=== PATIENT | female | born 1935 | race Caucasian/White ===

== ENCOUNTER 2016-08-08 09:43 | Day surgery (SDC) | payer MEDICARE, OTHER ==
--- NOTE | ~2016-08-08 | EGD ---
EGD REPORT [facility] [address] [address] NAME: ANNA CAMARENA : [birth year] STATUS : REG [facility]#: [id number] AGE: 80 ADM/REG DATE : 08/08/16 MR#: [id number] REPORT SERV DATE: 08/08/16 DICTATED BY: SHIRAZ ELLIS DATE: 08/08/16 REPORT STATUS : Draft TRANSCRIBED BY: [facility] DATE: 08/08/16 [facility] Center Patient Name: Anna Camarena Date of : 1935 Attending MD: SHIRAZ ELLIS MD Procedure Date No Time: 08/08/2016 Procedure: Upper GI endoscopy Indications: Dysphagia, Heartburn, Suspected esophageal reflux Referring MD: VERÓNICA GOETZ Medicines: as per anesthesia Complications: No immediate complications. Procedure: Pre-Anesthesia Assessment: - ASA Grade Assessment: III - A patient with severe systemic disease. After obtaining informed consent, the endoscope was passed under direct vision. Throughout the procedure, the patient's blood pressure, pulse, and oxygen saturations were monitored continuously. The GIF [id number] was introduced through the mouth, and advanced to the third part of duodenum. The upper GI endoscopy was accomplished without difficulty. The patient tolerated the procedure. Findings: A mild Schatzki ring (acquired) was found in the lower third of the esophagus. The scope was withdrawn. Dilation was performed with a Stoddard dilator with no resistance at 44 Fr. A small hiatus hernia was present. Localized mild inflammation characterized by erythema was found in the gastric antrum. Biopsies were taken with a cold forceps for histology. The examined duodenum was normal. Impression: - Mild Schatzki ring. Dilated. - Hiatus hernia. - Gastritis. Biopsied. - Normal examined duodenum. Recommendation: - Await pathology results. - Follow an antireflux regimen. - Continue present medications. Procedure Code(s): --- Professional --- 28869, Esophagogastroduodenoscopy, flexible, transoral; with biopsy, single or multiple 44778, Dilation of esophagus, by unguided sound or EGD REPORT [facility] [address] [place] [address] [place]. [address] NAME: ANNA CAMARENA : [birth year] STATUS : REG [facility]#: [id number] AGE: 80 ADM/REG DATE : 08/08/16 MR#: [id number] REPORT SERV DATE: 08/08/16 DICTATED BY: SHIRAZ ELLIS. DATE: 08/08/16 REPORT STATUS : Draft TRANSCRIBED BY: [employer] DATE: 08/08/16 bougie, single or multiple passes Diagnosis Code(s): --- Professional --- K22.2, Esophageal obstruction K44.9, Diaphragmatic hernia without obstruction or gangrene K29.70, Gastritis, unspecified, without bleeding R13.10, Dysphagia, unspecified R12, Heartburn CPT copyright 2013 [employer]. All rights reserved. The codes documented in this report are preliminary and upon tribunal member review may be revised to meet current compliance requirements. SHIRAZ ELLIS MD 08/08/2016 11:42 AM This report has been signed electronically. Number of Addenda: 0 Note Initiated On: 08/08/2016 11:18 AM Scope Withdrawal Time 0 hours 0 minutes 0 seconds [address] [place] [address]
[~2016-08-08 09:43] MED LIST: ADVAIR; ADVAIR250 INH; ALLEGRA180 PO; AMOXICILLIN; AVALIDE; AVALIDE1 TA1 PO; AVAP150 PO; BONIVA; CALTRA600D PO; CENTRUM TAB1 TAB PO; DIOV160 PO; HYDROCHLOROT12.5 MG PO; LEVSINTAB SL; LIDODERM TOP; MULTIPLE VIT PO; MULTIVITAMI1 PO; MYRBETRIQ25 MG PO; OMEPRAZOLE; OS500+D PO; PREMARIN VAG T; PREV15 PO; PRILO PO; PROTONIX PO; RECLAST IV; ULTRAM50 PO; ZETIA PO; ZYRTEC ALLGY10 MG PO; [UNRECOGNIZED DRUG - OTHER]
== END 2016-08-08 23:59 | disposition home health service (06) ==
LOC: DMU 09:43
PROVIDERS: Internal Medicine Gastroenterology
PROC: 0DB68ZX Excision of Stomach, Via Natural or Artificial Opening Endoscopic, Diagnostic (ICD-10-PCS; principal; 2016-08-08 12:00)
PROC: 0D7 Gastrointestinal System, Dilation (ICD-10-PCS; 2016-08-08 12:00)
DX: K22.2 Esophageal obstruction (principal); K44.9 Diaphragmatic hernia without obstruction or gangrene; I10 Essential (primary) hypertension; J45.909 Unspecified asthma, uncomplicated; E78.00 Pure hypercholesterolemia, unspecified; M19.90 Unspecified osteoarthritis, unspecified site; D64.9 Anemia, unspecified; Z88.5 Allergy status to narcotic agent; Z90.49 Acquired absence of other specified parts of digestive tract; Z98.890 Other specified postprocedural states
CPT/HCPCS: 88305